=== PATIENT | male | born 1990 | race Caucasian/White ===

== ENCOUNTER 2024-07-09 21:58 | Emergency (ER) | payer OTHER, SELFPAY ==
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
[2024-07-09 22:17] VITALS: BP 148/68; PULSE 83; RESP 19; TEMP 36.6; O2SAT 98; BMI 33.0
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
[2024-07-10] MEDS: Ketorolac Tromethamine 30 MG/ML VIAL IM (00:18)
[2024-07-10 00:40] VITALS: BP 144/86; PULSE 76; RESP 16; TEMP 36.8; O2SAT 98
== END 2024-07-10 00:49 | disposition home or self-care (01) ==
LOC: HO.ED 07-10 00:38
PROVIDERS: Emergency Provider Emergency Medicine
DX: S00.33XA Contusion of nose, initial encounter (principal); S02.2XXA Fracture of nasal bones, initial encounter for closed fracture; Y04.2XXA Assault by strike against or bumped into by another person, initial encounter; Y93.9 Activity, unspecified; Y92.9 Unspecified place or not applicable; Y99.9 Unspecified external cause status
CPT/HCPCS: 70450; 70486; 96372; 99284; J1885

== ENCOUNTER → 2024-07-09 22:48 | Outpatient (BNV) | payer OTHER, SELFPAY | PROVIDERS: Emergency Provider Emergency Medicine; PCP Internal Medicine; Visit Provider Radiology Diagnostic Radiology | DX: S09.93XA Unspecified injury of face, initial encounter (principal); Y04.2XXA Assault by strike against or bumped into by another person, initial encounter | CPT/HCPCS: 70450; 70486 ==